=== PATIENT | male | born 2000 | race Two or more races ===

== ENCOUNTER → 2024-07-21 | Outpatient (CLI) | payer OTHER, MEDICAID, SELFPAY ==
--- NOTE | 2024-07-21 15:53 | XR_ITS ---
Examination: Knee, right , 3 views Technique: Knee AP, lateral, oblique 3 views Date and time of exam: July 21, 2024 1614 hours Right indications: Right knee swelling and pain beginning one week ago. FINDINGS: Adequate bone density No fracture No dislocation IMPRESSION: No fracture
== END | disposition home or self-care (01) ==
PROVIDERS: Referring Provider Nurse Practitioner Family; Visit Provider Nurse Practitioner Family
DX: M25.561 Pain in right knee (principal)
CPT/HCPCS: 73562

== ENCOUNTER 2025-08-16 12:09 | Emergency (ER) | payer OTHER, MEDICAID, SELFPAY ==
[2025-08-16 12:58] VITALS: BP 118/82; PULSE 62; RESP 14; TEMP 36.5; O2SAT 98; BMI 31.1
--- NOTE | 2025-08-16 13:01 | XR_ITS ---
Examination: Duplex scan of the lower extremity, unilateral right Date and time of exam: August 16, 2025, 1320 hours INDICATIONS: Right pain beginning 3 days ago Technique: Duplex scan of the extremity veins using B-mode/grayscale imaging and Doppler spectral analysis and color flow Attention is directed to internal echogenicity, compression and augmentation involving these veins, color flow assessment, spectral analysis Findings: Major deep venous structures in the extremity demonstrate normal course and caliber. There is no evidence of deep vein thrombosis. Normal color flow and spectral analysis Impression: Negative for DVT..
--- NOTE | 2025-08-16 13:01 | PD.EDADULT ---
ED General RME/HPI General Chief complaint: Extremity Injury, Lower Stated complaint: PAIN/SWELLING L) LEG X 2 DAYS Time Seen by Provider: 08/16/25 12:37 Arrival date/time: 08/16/25 12:09 CC: Right leg pain and swelling HPI ongoing for the past 4 months but worse in the last 2 days. The patient has significant past medical history including a neurocytoma with radiation, mother states the patient's neurocytoma has been stable since the age of 69 is currently 24. Chief complaint today is the leg pain, the causing an unwillingness to a stand, this has been ongoing for 4 months but the mother states the leg has now become significantly more swollen the past 2 days. Mother denies fever shortness of breath difficulty breathing cough. Related Data Home Medications ?Medication ?Instructions ?Recorded ?Confirmed levetiracetam 1,000 mg tablet 1,000 mg PO BID Seizures #0 tabs 03/04/15 11/02/22 levothyroxine 88 mcg tablet 88 mcg PO QDAY Thyroid #0 tabs 03/04/15 11/02/22 clobazam 10 mg tablet (Onfi) 2 tab PO QPM ##0 04/03/17 11/02/22 cannabidiol 100 mg/mL oral 1.5 ml PO BID 11/08/19 11/02/22 solution (Epidiolex) clobazam 10 mg tablet 15 mg PO QAM 11/08/19 11/02/22 cannabidiol 100 mg/mL oral 2.5 mg HS 12/18/19 11/02/22 solution (Epidiolex) lamotrigine 200 mg tablet 200 mg PO BID 12/18/19 11/02/22 (Lamictal) Allergies Allergy/AdvReac Type Severity Reaction Status Date / Time No Known Allergies Allergy Verified 08/16/25 12:13 Review of Systems Review of Systems Narrative Review of Systems: GEN: No fever, no chills, no weight loss EYES: No discharge, no visual changes, no pain HEENT: No ear pain, no congestion, no sore throat PULM: No shortness of breath, no cough, no congestion CV: No chest pain, no dyspnea on exertion, no palpitations GI: No nausea, no vomiting, no diarrhea, no pain, no constipation : No frequency, no urgency, no dysuria MUSC/SKEL: No joint pain, no back pain, + leg pain SKIN: No rash PSYCH: No hallucinations, no depression HEME/LYMPH: No easy bleeding or bruising tendencies NEURO: No weakness, no headache Past Medical History Past Medical History NEUROLOGIC: Positive Neurological Disorders, Brain Tumor and Seizures CARDIAC: Negative Congestive Heart Failure RESPIRATORY: Negative Chronic Obstructive Pulmonary Disease (COPD) GENITOURINARY: Negative Renal Disease ENDOCRINE: Positive Hypothyroidism and Adrenal Disease; Negative Diabetes Mellitus Type 1 or Diabetes Mellitus Type 2 OTHER HISTORY: Positive Developmental Delay and Falls Surgical History SURGICAL: Positive Brain Shunt Social History SMOKING STATUS: Never smoker SECOND HAND EXPOSURE: No SUBSTANCE USE: does not use ED Exam Narrative Physical exam: [General: Obese appears not in any acute distress Head normocephalic, helmeted secondary to past medical history HEENT: Eyes pupils are PERRLA EOMs are intact mouth pink dry membranes uvula is midline. All of the subsystems of HEENT are within acceptable limits Neck is supple nontender Chest equal chest rise nontender to palpation Respiratory: Clear to auscultation no wheezes crackles or rubs CV: Rate rhythm is regular no murmurs rubs or clicks Abdomen is distended secondary to body habitus soft nontender no masses positive bowel sounds all 4 quadrants Back: No CVA tenderness no spinous process tenderness from cervical spine thoracic and lumbar spine Skin: Intact no petechiae rash induration ulceration or crepitus Extremities: Right lower extremity: Tender calf to palpation, no streaking or erythema upper leg is edematous nontender to palpation. No pitting edema. Moving all other extremities against resistance cap refill less than 2 seconds neurosensory intact Neuro: Awake alert oriented to self. Course Course Course Narrative: There is no acute finding to justify the patient's condition, patient is to follow-up with primary care and consider physical therapy, and leg exercises to strengthen the leg. If there is worsening of symptoms in 4 to 5 days return the emergency room for reevaluation. Quality Measures none Orders Category Date Time Status US venous doppler LE RT Stat Exams 08/16/25 13:01 Completed XR hip RT w pelvis 2-3V Stat Exams 08/16/25 15:31 Completed XR knee RT 3V Stat Exams 08/16/25 15:31 Completed CBC Stat Lab 08/16/25 13:49 Completed CMP [Comprehensive Metabolic Panel] Stat Lab 08/16/25 13:49 Completed PT [Prothrombin Time with INR] Stat Lab 08/16/25 13:49 Completed PTT [Partial Thromboplastin Time] Stat Lab 08/16/25 13:49 Completed Vital Signs Vital signs: Vital Signs Temperature 97.7 F 08/16/25 12:58 Pulse Rate 62 08/16/25 12:58 Respiratory Rate 14 08/16/25 12:58 Blood Pressure 118/82 08/16/25 12:58 Pulse Oximetry (%) 98 08/16/25 12:58 Oxygen Delivery Method Room Air 08/16/25 12:58 Discharge Plan Plan Patient Disposition: HOME (Self Care) Patient condition on transfer: Stable Prescriptions/Referrals Prescriptions/Med Rec: No Action levothyroxine 88 mcg Tablet 88 mcg PO QDAY Qty: 0 levetiracetam 1,000 mg Tablet 1,000 mg PO BID Qty: 0 clobazam [Onfi] 10 MG tablet 2 tab PO QPM Qty: 0 clobazam 10 mg Tablet 15 mg PO QAM Epidiolex 100 mg/mL Solution 1.5 ml PO BID lamotrigine [Lamictal] 200 mg Tablet 200 mg PO BID Epidiolex 100 mg/mL Solution 2.5 mg HS Referrals: Yasmany Lara FNP [Primary Care Provider] - In 1 week Problem List Clinical Impression: Leg edema, Leg pain Patient/Caregiver Discharge Instructions Education Materials: ED Pain, Acute, Uncertain Cause, ED Leg Swelling in a Single Leg Additional Instructions: Ibuprofen or Tylenol for temporary pain relief if there is worsening of symptoms after 4 to 5 days return to the emergency room or follow-up with your primary care doctor. 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 Coags within acceptable limits CMP shows no significant electrolyte imbalances renal impairment there is mild transaminitis but the T. bili is normal. Imaging Imaging interpretation: interpreted by me Imaging Interpretation(s): Ultrasound of the leg is negative knee and hip x-rays are negative for any acute finding. Medication Administration(s) none Diagnosis Differential Diagnosis ED Complaint MDM: DVT fracture cellulitis
[2025-08-16 14:04] LABS: Basophils # (Auto) 0.0 Thou/mm3 (0.0-0.2); Basophils % (Auto) 1 % (0-2.5); Eosinophils # (Auto) 0.4 Thou/mm3 (0.0-0.5); Eosinophils % (Auto) 6 % (0-10); Hematocrit 39.3 % (41.0-53.0); Hemoglobin 13.0 g/dL (13.5-16.0); Immature Granulocytes Auto 0.03 Thou/mm3 (0.00-0.00); Lymphocytes # (Auto) 2.4 Thou/mm3 (1.0-4.8); Lymphocytes % (Auto) 41 % (10-50); Mean Corpuscular HGB Conc 33.1 g/dl (31.0-37.0); Mean Corpuscular Hemoglobin 28.3 pg (25.0-35.0); Mean Corpuscular Volume 86 fL (80-100); Monocytes # (Auto) 0.3 Thou/mm3 (0.0-0.8); Monocytes % (Auto) 5 % (0-12); Neutrophils # (Auto) 2.8 Thou/mm3 (1.8-7.7); Neutrophils % (Auto) 47 % (37-80); Nucleated Red Blood Cell # 0.00 Thou/mm3 (0.00-0.00); Nucleated Red Blood Cell % 0 /100 WBC (0); Platelet Count 265 Thou/mm3 (140-440); RDW Standard Deviation 40.3 fL (35.1-43.9); Red Blood Count 4.59 Miln/mm3 (4.50-5.90); White Blood Count 5.9 Thou/mm3 (3.8-10.6)
[2025-08-16 14:20] LABS: INR 0.9 (0.9-1.3); Partial Thromboplastin Time 27.7 Seconds (22.0-36.0); Prothrombin Time 10.0 Seconds (9.0-12.2)
[2025-08-16 14:29] LABS: Alanine Aminotransferase 55 U/L (10-49); Albumin, Serum 4.4 gm/dL (3.5-5.0); Albumin/Globulin Ratio 1.1 (1.2-2.2); Alkaline Phosphatase 143 U/L (46-116); Anion Gap 11 (7-16); Aspartate Amino Transferase < 10 U/L (0-34); BUN/Creatinine Ratio 9 Ratio (12-20); Bilirubin,Total 0.3 mg/dL (0.3-1.2); Blood Urea Nitrogen 9 mg/dL (9-23); Calcium 9.7 mg/dL (8.3-10.6); Calcium (Corrected) 9.7 mg/dL (8.5-10.1); Carbon Dioxide 27.6 mMol/L (20.0-31.0); Chloride 104 mMol/L (98-107); Creatinine (Component) 1.0 mg/dL (0.6-1.3); Estimated Creatinine Clearance 97.9 mL/min (>60); Globulin 4.0 gm/dL (2.3-3.5); Glucose 89 mg/dL (74-106); Osmolality,Calculated 282 (275-295); Potassium 3.4 mMol/L (3.4-5.1); Sodium 143 mMol/L (136-145); Total Protein 8.4 gm/dL (5.7-8.2); eGFR > 60 See Note
--- NOTE | 2025-08-16 15:31 | XR_ITS ---
Examination: Right hip AP, lateral, AP pelvis 3 views Technique: Hip AP lateral, AP pelvis, 3 views Exam date and time: August 16, 2025, 1533 hours INDICATIONS: Patient fell today with injury to the right hip, right hip pain. FINDINGS: No right hip fracture or hip dislocation Left hip bones of the pelvis intact IMPRESSION: No acute hip or pelvic fracture.
--- NOTE | 2025-08-16 15:31 | XR_ITS ---
Examination: Knee, right, 3 views Technique: Knee AP, lateral, oblique 3 views Date and time of exam: August 16, 2025, 1533 hours INDICATIONS: Patient fell today with injury to the knee, knee pain. FINDINGS: No fracture or dislocation. No foreign body IMPRESSION: No fracture or dislocation
[2025-08-16 17:08] VITALS: BP 111/76; PULSE 95; RESP 19; O2SAT 95
== END 2025-08-16 17:09 | disposition home or self-care (01) ==
PROVIDERS: Registered Nurse General Practice; Emergency Provider Emergency Medicine
DX: S79.911A Unspecified injury of right hip, initial encounter (principal); S89.91XA Unspecified injury of right lower leg, initial encounter; X58.XXXA Exposure to other specified factors, initial encounter
CPT/HCPCS: 36415; 73502; 73562; 80053; 85025; 85610; 85730; 93971; 99283